=== PATIENT | male | born 1970 | race Caucasian/White ===

== ENCOUNTER → 2016-08-27 | Outpatient (CLI) | payer BC ==
--- NOTE | ~2016-08-27 | PUL ---
PATIENT'S NAME: HALEY MIRANDA [facility] AGE: 46 Y [address] ROOM: [place] [id number] LOCATION: [facility] ADMIT DATE: 08/27/2016 Pulmonary DISCHARGE DATE: FAMILY PHYSICIAN: Pietro Eckert MD ATTENDING PHYSICIAN: VIMAL EMERY NAME OF PROCEDURE: Sleep study DATE OF PROCEDURE: 08/27/16 TECH: MYA Jacobs TEST #: [facility] [place]# [id number] MEDICAL HISTORY: Patient is a 46-year-old with daytime sleepiness and snoring. This study was done to re-titrate CPAP for previously identified obstructive sleep apnea. SLEEP STAGE SUMMARY: The patient was studied for 475 minutes of which he slept 315 minutes. He fell asleep in 3.5 minutes and slept for 66% of the night. Sleep architecture revealed a decline in slow wave and REM sleep. RESPIRATORY SUMMARY: Oxygen saturations ranged from 82-93%. CPAP was initiated at 8 cm and titrated to 17 cm. There were nonapneic desaturations after control of the sleep apnea was achieved and 2 liters of oxygen was added. EKG SUMMARY: No dysrhythmias were noted. LIMB MOVEMENT SUMMARY: No clinically relevant periodic limb movements were noted. SUMMARY: Obstructive sleep apnea and nonapneic hypoxemia requiring CPAP at 17 cm and oxygen 2 liters. Patient will receive results from the ordering provider. PIETRO ADORNO MD [facility]/ /[id number] dtt: 08/31/16 1303 , Pietro Adorno dtd: 08/30/16 1319
== END | disposition disaster alternative care site (69) ==
LOC: GSLP 20:24
DX: G47.33 Obstructive sleep apnea (adult) (pediatric) (principal); G47.10 Hypersomnia, unspecified; R09.02 Hypoxemia